=== PATIENT | female | born 1930 ===

== ENCOUNTER 2016-11-02 12:20 | Emergency (ER) | payer SELFPAY ==
[~2016-11-02] VITALS: Ht 162.6 cm; Wt 100.8 kg
[2016-11-02 12:22] VITALS: BP 117/63
[2016-11-02] MEDS ORDERED: JANU25TA PO (12:33)
[2016-11-02] MEDS ORDERED: HYDR-3713 PO (12:33)
[2016-11-02] MEDS ORDERED: LISI-542 PO (12:33)
[2016-11-02] MEDS ORDERED: PROAAER10 INH (12:36)
--- NOTE | 2016-11-02 13:18 | REP ---
LEFT ANKLE SERIES: Four views of the left ankle performed. There is no evidence of acute fracture or dislocation. Ankle mortise is anatomic. There is mild soft tissue swelling. There is moderate inferior calcaneal spurring. IMPRESSION: No fracture or dislocation. Signed by Josh Lucia MD 11/02/2016 03:26 P
[2016-11-02] MEDS ORDERED: NORCOTAB PO (13:25)
--- NOTE | 2016-11-02 14:15 | REP ---
REASON: Pain with weight bearing. Degenerative changes seen throughout the foot. There is a plantar calcaneal heel spur. There is no evidence of an acute fracture. IMPRESSION: Degenerative changes. Signed by Rasta Bennett DO 11/02/2016 04:21 P
== END 2016-11-02 14:02 | disposition home or self-care (01) ==
LOC: M ED 13:52
DX: M77.32 Calcaneal spur, left foot (principal); S96.912A Strain of unspecified muscle and tendon at ankle and foot level, left foot, initial encounter; W01.0XXA Fall on same level from slipping, tripping and stumbling without subsequent striking against object, initial encounter; Y92.410 Unspecified street and highway as the place of occurrence of the external cause; Y93.01 Activity, walking, marching and hiking; Y99.8 Other external cause status; Z79.899 Other long term (current) drug therapy